=== PATIENT | female | born 1940 | race African-American/Black ===

== ENCOUNTER 2021-09-28 11:55 | Emergency (ER) | payer OTHER, MEDICAID ==
[~2021-09-28] VITALS: Ht 162.6 cm; Wt 96.0 kg
[2021-09-28 15:14] LABS: CHLORIDE 101 mEq/L (98-107)
[2021-09-28] MEDS ORDERED: HYDROCODONE/ACETAMINOPHEN 5/325MG TABLET PO STA (15:58)
[2021-09-28] MEDS ORDERED: SODIUM CHLORIDE 0.9% 1,000 ML IV ONE (16:00)
[2021-09-28 16:07] LABS: HEMATOCRIT. 29.7 % (36.0-48.0); HEMOGLOBIN. 9.8 g/dL (12.0-16.0); MEAN CORPUSCULAR VOLUME 88.2 fL (81.0-99.0); PLATELET 387 x1000/uL (130-400); RED BLOOD CELL COUNT 3.37 mill/uL (4.2-5.4); RED CELL DISTRIBUTION WIDTH 16.7 % (11.6-14.6)
[2021-09-28 17:05] LABS: PLATELET ESTIMATE NORMAL
[2021-09-28] MEDS ORDERED: PIPERACILLIN/TAZ 3.375G PREMIX 50 ML IV NR (17:45)
[2021-09-28] MEDS ORDERED: PIPERACILLIN/TAZOBACTAM 3.375GM/50ML PREMIX IV ONE (17:45)
[2021-09-28 18:06] LABS: CLARITY URINE CLEAR (CLEAR); COLOR URINE YELLOW (YELLOW); KETONES URINE NEGATIVE (NEGATIVE); LEUKOCYTE ESTERASE URINE NEGATIVE (NEGATIVE); NITRITE URINE NEGATIVE (NEGATIVE); OCCULT BLOOD URINE NEGATIVE (NEGATIVE); PH URINE 5.5 (4.5-8.0); PROTEIN URINE NEGATIVE (NEGATIVE); UROBILINOGEN URINE 0.2 E.U./dL (0.2-1.0)
[2021-09-28 19:38] LABS: PROTHROMBIN TIME > 100.0 sec (9.6-11.0)
[2021-09-28 19:41] LABS: INR > 10.0
[2021-09-28] MEDS ORDERED: PHYTONADIONE 10 MG in DEXTROSE 5% WATER 50 ML SUBCUT ONE (20:00)
[2021-09-28] MEDS ORDERED: PHYTONADIONE 10MG/ML AMP SUBCUT NR (21:00)
[2021-09-28 23:00] VITALS: BP 106/50
== END 2021-09-28 23:51 ==
LOC: ER 12:23
DX: K92.2 Gastrointestinal hemorrhage, unspecified (principal); R53.1 Weakness; R42 Dizziness and giddiness; Z20.822 Contact with and (suspected) exposure to COVID-19
CPT/HCPCS: 36415; 71045; 80053; 81003; 83605; 83880; 84484; 85025; 85610; 87426; 93005; 96361; 96365; 96372; 99291; J2543; J3430; J7030; J7060; A4315